=== PATIENT | male | born 1955 | race African-American/Black ===

== ENCOUNTER 2020-02-05 06:20 | Emergency (ER) | payer MEDICARE, OTHER ==
[~2020-02-05] VITALS: Ht 180.3 cm; Wt 91.4 kg
[2020-02-05] MEDS ORDERED: IBUPROFEN 600MG TABLET PO ONE (08:15)
[2020-02-05] MEDS ORDERED: ACETAMINOPHEN WITH CODEINE 300/30MG TABLET PO ONE (08:15)
[2020-02-05 10:05] VITALS: BP 154/82
[2020-02-05 10:14] LABS: BASOPHILS % 1.2 % (0.0-2.0); EOSINOPHILS % 2.6 % (0.0-5.0); HEMATOCRIT. 43.2 % (42.0-52.0); HEMOGLOBIN. 15.1 g/dL (14.0-18.0); LYMPHOCYTES % 26.9 % (20.0-50.0); MEAN CORPUSCULAR HEMOGLOBIN 33.7 pg (28.0-32.0); MEAN CORPUSCULAR VOLUME 96.6 fL (80.0-94.0); MEAN PLATELET VOLUME 7.6 fl (7.4-10.4); MONOCYTES % 10.3 % (2.0-8.0); PLATELET 243 x1000/uL (130-400); RED BLOOD CELL COUNT 4.47 mill/uL (4.7-6.1); RED CELL DISTRIBUTION WIDTH 14.2 % (11.6-14.6)
[2020-02-05 10:19] LABS: CHLORIDE 106 mEq/L (98-107)
== END 2020-02-05 10:59 | disposition home or self-care (01) ==
LOC: ER 06:20
DX: M65.841 Other synovitis and tenosynovitis, right hand (principal)
CPT/HCPCS: 36415; 73130; 80048; 85025; 99284